=== PATIENT | male | born 1955 | race Asian ===

== ENCOUNTER → 2021-11-18 | Outpatient (CLI) | payer MEDICARE ==
--- NOTE | 2021-11-18 09:23 | RAD ---
CLINICAL HISTORY: Enlarged left testicle. COMPARISON: None available. TECHNIQUE: Ultrasound images of the scrotum was performed with houston-scale and color doppler. FINDINGS: The right testis measures 4.2 x 2.6 x 2.5. The left testis measures 4.0 x 2.7 x 2.5. There is no intratesticular abnormality. Testicular vascularity is symmetric and within normal limit s. There is a 7 x 5 x 6 mm left epididymal body cyst. Large left, moderate right mildly complex hydroceles. No varicocele. IMPRESSION: Large left and moderate right hydrocele. Electronically signed by: Primo Suh MD (11/18/2021 9:20 AM) [id number]
== END ==
LOC: US 07:52
PROVIDERS: ATTEND Family Medicine
DX: N50.3 Cyst of epididymis (principal); N43.3 Hydrocele, unspecified; N50.89 Other specified disorders of the male genital organs
CPT/HCPCS: 76870

== ENCOUNTER → 2021-12-05 | Outpatient (CLI) | payer MEDICARE ==
[2021-12-05 10:44] LABS: BASO % 1 % (0-3); EOS % 2 % (0-3); HEMATOCRIT 21.3 % (39.0-53.0); HEMOGLOBIN 7.1 g/dL (13.0-17.5); LYMPH # 1.7 x10^3/uL (1.0-4.8); LYMPH % 62 % (24-48); MEAN CORPUSCULAR HEMOGLOBIN 31 pg (25-35); MEAN CORPUSCULAR HGB CONC 34 g/dL (31-37); MEAN CORPUSCULAR VOLUME 91 fL (79-100); MONO # 0.3 x10^3/uL (0.0-1.1); MONO % 9 % (0-9); NEUT # 0.7 x10^3/uL (1.8-7.7); NEUT % 26 % (31-73); PLATELET COUNT 134 x10^3/uL (140-400); RED BLOOD COUNT 2.34 x10^6/uL (4.30-5.70); RED CELL DISTRIBUTION WIDTH 17.7 % (11.5-14.5); WHITE BLOOD COUNT 2.8 x10^3/uL (4.0-11.0)
[2021-12-05 10:59] LABS: CALCIUM 8.1 mg/dL (8.5-10.1); GFR 74.3; POTASSIUM 3.8 mmol/L (3.5-5.1)
[2021-12-05 11:11] LABS: ALBUMIN 2.1 g/dL (3.4-5.0); ALBUMIN/GLOBULIN RATIO 0.2 (1.0-1.7); TOTAL BILIRUBIN 0.2 mg/dL (0.2-1.0); TOTAL PROTEIN 13.9 g/dL (6.4-8.2)
[2021-12-05 14:24] LABS: % EOS 1 % (0-5); % LYMPHS 68 % (24-48); % MONOS 6 % (0-10)
[2021-12-05 14:26] LABS: ANISOCYTOSIS SLIGHT; HYPOCHROMIA SLIGHT; PLT ESTIMATE DECREASED (ADEQUATE)
[2021-12-05 14:27] LABS: ROULEAUX PRESENT
[2021-12-06 06:28] LABS: % SEGS 25 % (35-66)
[2021-12-06 14:13] LABS: IMMUNOGLOBULIN A 11 mg/dL (61-437); IMMUNOGLOBULIN G 8284 mg/dL (603-1613); IMMUNOGLOBULIN M 11 mg/dL (20-172)
[2021-12-06 15:43] LABS: ALBUM 3.8 g/dL (2.9-4.4); ALPHA 1 0.3 g/dL (0.0-0.4); ALPHA 2 0.7 g/dL (0.4-1.0); GAMMA 7.1 g/dL (0.4-1.8); KAPPA FREE 5.8 mg/L (3.3-19.4); PROTEIN TOTAL 12.8 g/dL (6.0-8.5); SPEP AG RATIO 0.4 (0.7-1.7)
== END ==
LOC: ONCLAB 09:29
PROVIDERS: ATTEND Internal Medicine Hematology & Oncology
DX: D64.89 Other specified anemias (principal)
CPT/HCPCS: 36415; 80053; 82525; 82668; 82784; 83520; 84165; 85007; 85025; 85045; 86334

== ENCOUNTER 2021-12-26 08:45 | Inpatient (IN) | payer MEDICARE ==
[~2021-12-26] VITALS: Ht 172.7 cm; Wt 62.1 kg
[2021-12-26] VITALS (7 sets, daily range): BP systolic 100–116; BP diastolic 51–58
[2021-12-26] MEDS ORDERED: IV RINGERS,LACTATED 1000ML 1,000 ML IV ONE (09:15)
[2021-12-26 09:41] LABS: BASO % 0 % (0-3); EOS % 0 % (0-3); HEMATOCRIT 20.4 % (39.0-53.0); LYMPH # 0.9 x10^3/uL (1.0-4.8); LYMPH % 20 % (24-48); MEAN CORPUSCULAR HEMOGLOBIN 30 pg (25-35); MEAN CORPUSCULAR HGB CONC 34 g/dL (31-37); MEAN CORPUSCULAR VOLUME 88 fL (79-100); MONO # 0.3 x10^3/uL (0.0-1.1); MONO % 7 % (0-9); NEUT # 3.1 x10^3/uL (1.8-7.7); NEUT % 73 % (31-73); PLATELET COUNT 111 x10^3/uL (140-400); RED BLOOD COUNT 2.31 x10^6/uL (4.30-5.70); RED CELL DISTRIBUTION WIDTH 18.2 % (11.5-14.5); WHITE BLOOD COUNT 4.3 x10^3/uL (4.0-11.0)
[2021-12-26 09:47] LABS: CALCIUM 7.4 mg/dL (8.5-10.1); CREATININE 1.6 mg/dL (0.7-1.3); GFR 43.2; POTASSIUM 3.6 mmol/L (3.5-5.1)
[2021-12-26 10:02] LABS: ALBUMIN/GLOBULIN RATIO 0.2 (1.0-1.7); MAGNESIUM 2.1 mg/dL (1.8-2.4); PHOSPHORUS 4.4 mg/dL (2.6-4.7); TOTAL BILIRUBIN 0.4 mg/dL (0.2-1.0); TOTAL PROTEIN 14.3 g/dL (6.4-8.2)
--- NOTE | 2021-12-26 10:19 | PDOC1 ---
History and Physical Date of Admission Date of Admission DATE: 12/26/21 TIME: 10:18 Identification/Chief Complaint Chief Complaint Weakness Source Source: Caregiver, Chart review, Patient History of Present Illness History of Present Illness Patient is a 66-year-old male with past medical history multiple myeloma, currently being followed by oncology (Dr. Rodriguez), who presents to the ED with complaints of weakness for the past 3 days. Patient states that he had some blood work done over the past 3 months that was suspicious for cancer. He has been seen by Dr. Rodriguez on 2 occasions as an outpatient, with PET scan and bone marrow biopsy pending for this evaluation. Labs in ED showed hemoglobin 7.0, hematocrit 20.4, sodium 129, bicarbonate 20, BUN 22, creatinine 1.6, CBG 107, calcium 7.4, albumin 2.0, proBNP 435. Checks x-ray showed what could be chronic changes or mild acute infiltrates. Will admit patient for further medical management. Past Medical History Past Medical History Multiple myeloma Past Surgical History Past Surgical History Eye surgery Family History Family History: Family History Unknown Social History Smoke: No ALCOHOL: rare Drugs: None Current Medications Current Medications Current Medications Ringer's Solution 1,000 ml @ 1,000 mls/hr 1X ONCE IV Last administered on 12/26/21at 09:25; Start 12/26/21 at 09:15; Stop 12/26/21 at 10:14; Status DC Allergies Allergies: Coded Allergies: No Known Drug Allergies (Unverified , 12/26/21) ROS Review of System GENERAL: Weakness. No history of weight change. SKIN: No bruising, hair changes or rashes. EYES: No blurred, double or loss of vision. NOSE AND THROAT: No history of nosebleeds, hoarseness or sore throat. HEART: Denies chest pain, denies palpitations. LUNGS: Denies cough, hemoptysis, wheezing or shortness of breath. GASTROINTESTINAL: Denies nausea, vomiting, abdominal pain. GENITOURINARY: Denies dysuria, frequency, urgency, hematuria. NEUROLOGIC: Denies history of numbness, tingling, tremor or weakness. PSYCHIATRIC: Denies anxiety, denies depression. ENDOCRINE: No history of heat or cold intolerance, polyuria or polydipsia. EXTREMITIES: Denies joint pain, pain on walking or stiffness. Physical Exam Physical Exam General: Alert, Oriented X3, Cooperative, No acute distress HEENT: PERRLA, EOMI Lungs: Bibasilar crackles. Normal air movement Heart: RRR, no murmurs Cardiovascular: S1, S2 Abdomen: Normal bowel sounds, Soft, No tenderness Extremities: No clubbing, No cyanosis Skin: No rashes, No significant lesion Neuro: Normal speech, Normal tone, Sensation intact Psych/Mental Status: Mental status NL, Mood NL Vitals Vitals Vital Signs Date Time Temp Pulse Resp B/P (MAP) Pulse Ox O2 Delivery O2 Flow Rate FiO2 12/26/21 10:13 80 18 96/56 (69) 98 Room Air 12/26/21 09:00 98.0 98.0 Labs Labs Laboratory Tests Test 12/26/21 09:20 White Blood Count 4.3 x10^3/uL (4.0-11.0) Red Blood Count 2.31 x10^6/uL (4.30-5.70) Hemoglobin 7.0 g/dL (13.0-17.5) Hematocrit 20.4 % (39.0-53.0) Mean Corpuscular Volume 88 fL (79-100) Mean Corpuscular Hemoglobin 30 pg (25-35) Mean Corpuscular Hemoglobin Concent 34 g/dL (31-37) Red Cell Distribution Width 18.2 % (11.5-14.5) Platelet Count 111 x10^3/uL (140-400) Neutrophils (%) (Auto) 73 % (31-73) Lymphocytes (%) (Auto) 20 % (24-48) Monocytes (%) (Auto) 7 % (0-9) Eosinophils (%) (Auto) 0 % (0-3) Basophils (%) (Auto) 0 % (0-3) Neutrophils # (Auto) 3.1 x10^3/uL (1.8-7.7) Lymphocytes # (Auto) 0.9 x10^3/uL (1.0-4.8) Monocytes # (Auto) 0.3 x10^3/uL (0.0-1.1) Eosinophils # (Auto) 0.0 x10^3/uL (0.0-0.7) Basophils # (Auto) 0.0 x10^3/uL (0.0-0.2) Sodium Level 129 mmol/L (136-145) Potassium Level 3.6 mmol/L (3.5-5.1) Chloride Level 98 mmol/L (98-107) Carbon Dioxide Level 20 mmol/L (21-32) Anion Gap 11 (6-14) Blood Urea Nitrogen 22 mg/dL (8-26) Creatinine 1.6 mg/dL (0.7-1.3) Estimated GFR (Cockcroft-Gault) 43.2 BUN/Creatinine Ratio 14 (6-20) Glucose Level 107 mg/dL (70-99) Calcium Level 7.4 mg/dL (8.5-10.1) Phosphorus Level 4.4 mg/dL (2.6-4.7) Magnesium Level 2.1 mg/dL (1.8-2.4) Total Bilirubin 0.4 mg/dL (0.2-1.0) Aspartate Amino Transf (AST/SGOT) 29 U/L (15-37) Alanine Aminotransferase (ALT/SGPT) 27 U/L (16-63) Alkaline Phosphatase 49 U/L (46-116) Troponin I High Sensitivity 37 ng/L (4-75) BE-Zgb-I-Type Natriuretic Peptide 435 pg/mL (0-124) Total Protein 14.3 g/dL (6.4-8.2) Albumin 2.0 g/dL (3.4-5.0) Albumin/Globulin Ratio 0.2 (1.0-1.7) Laboratory Tests Test 12/26/21 09:20 White Blood Count 4.3 x10^3/uL (4.0-11.0) Red Blood Count 2.31 x10^6/uL (4.30-5.70) Hemoglobin 7.0 g/dL (13.0-17.5) Hematocrit 20.4 % (39.0-53.0) Mean Corpuscular Volume 88 fL (79-100) Mean Corpuscular Hemoglobin 30 pg (25-35) Mean Corpuscular Hemoglobin Concent 34 g/dL (31-37) Red Cell Distribution Width 18.2 % (11.5-14.5) Platelet Count 111 x10^3/uL (140-400) Neutrophils (%) (Auto) 73 % (31-73) Lymphocytes (%) (Auto) 20 % (24-48) Monocytes (%) (Auto) 7 % (0-9) Eosinophils (%) (Auto) 0 % (0-3) Basophils (%) (Auto) 0 % (0-3) Neutrophils # (Auto) 3.1 x10^3/uL (1.8-7.7) Lymphocytes # (Auto) 0.9 x10^3/uL (1.0-4.8) Monocytes # (Auto) 0.3 x10^3/uL (0.0-1.1) Eosinophils # (Auto) 0.0 x10^3/uL (0.0-0.7) Basophils # (Auto) 0.0 x10^3/uL (0.0-0.2) Sodium Level 129 mmol/L (136-145) Potassium Level 3.6 mmol/L (3.5-5.1) Chloride Level 98 mmol/L (98-107) Carbon Dioxide Level 20 mmol/L (21-32) Anion Gap 11 (6-14) Blood Urea Nitrogen 22 mg/dL (8-26) Creatinine 1.6 mg/dL (0.7-1.3) Estimated GFR (Cockcroft-Gault) 43.2 BUN/Creatinine Ratio 14 (6-20) Glucose Level 107 mg/dL (70-99) Calcium Level 7.4 mg/dL (8.5-10.1) Phosphorus Level 4.4 mg/dL (2.6-4.7) Magnesium Level 2.1 mg/dL (1.8-2.4) Total Bilirubin 0.4 mg/dL (0.2-1.0) Aspartate Amino Transf (AST/SGOT) 29 U/L (15-37) Alanine Aminotransferase (ALT/SGPT) 27 U/L (16-63) Alkaline Phosphatase 49 U/L (46-116) Troponin I High Sensitivity 37 ng/L (4-75) VC-Lac-Y-Type Natriuretic Peptide 435 pg/mL (0-124) Total Protein 14.3 g/dL (6.4-8.2) Albumin 2.0 g/dL (3.4-5.0) Albumin/Globulin Ratio 0.2 (1.0-1.7) Images Images PATIENT: SHELBY PRECIADO ACCOUNT: [id number] : 1955 LOCATION: ER AGE: 66 SEX: M EXAM STATUS: REG ER ORD. PHYSICIAN: SERGIO HENRIQUEZ REASON: cough, leukopenia PROCEDURE: PORTABLE CHEST 1V AP chest. HISTORY: Cough AP view was taken of the chest. I do not have previous study for comparison. Heart is within normal limits in size. There is no effusion. There are slight interstitial infiltrates which could be acute or chronic. PA and lateral views could be of benefit. Comparison with a prior study could be of benefit. IMPRESSION: 1. slight hazy interstitial changes which could be chronic changes or mild acute infiltrates. VTE Prophylaxis Ordered VTE Prophylaxis Devices: No VTE Pharmacological Prophylaxi: Yes Assessment/Plan Assessment/Plan Weakness Community-acquired pneumonia due to gram-negative or gram-positive organism Hyponatremia Normocytic anemia Multiple myeloma MONI due to vasomotor nephropathy Hypocalcemia Severe malnutrition Plan: Will order 1 unit PRBC Will obtain blood cultures and then treat with IV Rocephin and azithromycin Fluid restriction for hyponatremia. If no improvement with fluid restriction will order hypertonic saline. Will monitor kidney function for improvement with IV fluids IV calcium gluconate 1 g Consult placed to oncology for bone marrow biopsy FEN - regular diet PPX - Heparin FULL CODE/surrogate decision-maker is his daughter (Racquel Arthur) Dispo - inpatient for above Justifications for Admission Other Justification MARGARETH GRAVES MD December 26, 2021 10:19
[2021-12-26 10:24] LABS: INFLUENZA A PATIENT NEGATIVE (NEGATIVE); INFLUENZA B PATIENT NEGATIVE (NEGATIVE)
--- NOTE | 2021-12-26 10:25 | RAD ---
AP chest. HISTORY: Cough AP view was taken of the chest. I do not have previous study for comparison. Heart is within normal l imits in size. There is no effusion. There are slight interstitial infiltrates which could be acute o r chronic. PA and lateral views could be of benefit. Comparison with a prior study could be of benefi t. IMPRESSION: 1. slight hazy interstitial changes which could be chronic changes or mild acute infiltrates. Electronically signed by: Guanako Maddox MD (12/26/2021 10:22 AM) [id number]
--- NOTE | 2021-12-26 10:33 | PHYS DOC ---
Past Medical History Additional Past Medical Histor: pancytopenia Past Surgical History: No Surgical History Smoking Status: Never Smoker Alcohol Use: None General Adult EDM: Chief Complaint: WEAKNESS/GENERALIZED HPI: HPI: Patient is a 66 year old male who presents from home with 3-day history of weakness and new onset cough. Patient's daughter is at bedside and aids in providing history. Patient is currently undergoing outpatient work-up by Dr. Rodriguez, hematology/oncology, regarding incidental finding of pancytopenia earlier this year. Patient is scheduled for a PET scan on Sunday as well as bone marrow biopsy. With patient's worsening weakness and new onset cough, patient is hoping to have work-up expedited in the hospital. Patient has no other complaints or concerns. Review of Systems: Review of Systems: Constitutional: Denies fever, chills; reports generalized weakness Eyes: Denies change in visual acuity, visual field deficits or discharge HENT: Denies ear pain, nasal congestion or sore throat Respiratory: Denies shortness of breath; reports dry cough Cardiovascular: Denies chest pain, palpitations or edema GI: Denies abdominal pain, nausea, vomiting, bloody stools or diarrhea : Denies dysuria or hematuria Musculoskeletal: Denies back pain or joint pain Integument: Denies rash or other skin lesion Neurologic: Denies headache, focal weakness or sensory changes Heart Score: C/O Chest Pain: No Current Medications: Current Medications Medications (Trade) Dose Ordered Sig/Carl Start Time Stop Time Status Last Admin Dose Admin Ringer's Solution 1,000 ml @ 1,000 mls/hr 1X ONCE 12/26/21 09:15 12/26/21 10:14 DC 12/26/21 09:25 1,000 MLS/HR Allergies: Allergies: Allergies Coded Allergies Type Severity Reaction Last Updated Verified No Known Drug Allergies 12/26/21 No Physical Exam: PE: Constitutional: Cachectic, no acute distress. HENT: Normocephalic, atraumatic, bilateral external ears normal, oropharynx tacky, no oral exudates. Eyes: EOMI, conjunctiva normal, no discharge. Neck: Normal range of motion, no stridor. Cardiovascular: Regular rate, regular rhythm. Lungs & Thorax: Equal thoracic expansion, no increased work of breathing, breath sounds diminished but clear to auscultation in all lung mccoy. Abdomen: Soft, no tenderness, no masses, no pulsatile masses. Skin: Warm, dry, no erythema, no rash. Extremities: No cyanosis, no clubbing, ROM intact, no edema. Neurologic: Alert and oriented x4, motor and sensory function grossly intact, no focal deficits noted. Current Patient Data: Labs: Laboratory Tests Test 12/26/21 09:20 White Blood Count 4.3 x10^3/uL (4.0-11.0) Red Blood Count 2.31 x10^6/uL (4.30-5.70) L Hemoglobin 7.0 g/dL (13.0-17.5) *L Hematocrit 20.4 % (39.0-53.0) L Mean Corpuscular Volume 88 fL (79-100) Mean Corpuscular Hemoglobin 30 pg (25-35) Mean Corpuscular Hemoglobin Concent 34 g/dL (31-37) Red Cell Distribution Width 18.2 % (11.5-14.5) H Platelet Count 111 x10^3/uL (140-400) L Neutrophils (%) (Auto) 73 % (31-73) Lymphocytes (%) (Auto) 20 % (24-48) L Monocytes (%) (Auto) 7 % (0-9) Eosinophils (%) (Auto) 0 % (0-3) Basophils (%) (Auto) 0 % (0-3) Neutrophils # (Auto) 3.1 x10^3/uL (1.8-7.7) Lymphocytes # (Auto) 0.9 x10^3/uL (1.0-4.8) L Monocytes # (Auto) 0.3 x10^3/uL (0.0-1.1) Eosinophils # (Auto) 0.0 x10^3/uL (0.0-0.7) Basophils # (Auto) 0.0 x10^3/uL (0.0-0.2) Sodium Level 129 mmol/L (136-145) L Potassium Level 3.6 mmol/L (3.5-5.1) Chloride Level 98 mmol/L (98-107) Carbon Dioxide Level 20 mmol/L (21-32) L Anion Gap 11 (6-14) Blood Urea Nitrogen 22 mg/dL (8-26) Creatinine 1.6 mg/dL (0.7-1.3) H Estimated GFR (Cockcroft-Gault) 43.2 BUN/Creatinine Ratio 14 (6-20) Glucose Level 107 mg/dL (70-99) H Calcium Level 7.4 mg/dL (8.5-10.1) L Phosphorus Level 4.4 mg/dL (2.6-4.7) Magnesium Level 2.1 mg/dL (1.8-2.4) Total Bilirubin 0.4 mg/dL (0.2-1.0) Aspartate Amino Transferase (AST) 29 U/L (15-37) Alanine Aminotransferase (ALT) 27 U/L (16-63) Alkaline Phosphatase 49 U/L (46-116) Troponin I High Sensitivity 37 ng/L (4-75) NE-Onk-C-Type Natriuretic Peptide 435 pg/mL (0-124) H Total Protein 14.3 g/dL (6.4-8.2) H Albumin 2.0 g/dL (3.4-5.0) L Albumin/Globulin Ratio 0.2 (1.0-1.7) L Laboratory Tests 12/26/21 09:20 Laboratory Tests 12/26/21 09:20 Vital Signs: Vital Signs Date Time Temp Pulse Resp B/P (MAP) Pulse Ox O2 Delivery O2 Flow Rate FiO2 12/26/21 10:13 80 18 96/56 (69) 98 Room Air 12/26/21 09:00 98.0 81 20 117/57 (77) 97 98.0 EKG: EKG: EKG Interpreted by Dr. Villarreal at 0937: Regular rate and rhythm 81 bpm with no ectopic beats. QT 360 ms/QTc 424 ms. No STEMI. Radiology/Procedures: Radiology/Procedures: PROCEDURE: PORTABLE CHEST 1V AP chest. HISTORY: Cough AP view was taken of the chest. I do not have previous study for comparison. Heart is within normal limits in size. There is no effusion. There are slight interstitial infiltrates which could be acute or chronic. PA and lateral views could be of benefit. Comparison with a prior study could be of benefit. IMPRESSION: 1. slight hazy interstitial changes which could be chronic changes or mild acute infiltrates. Electronically signed by: Guanako Maddox MD (12/26/2021 10:22 AM) [id number] Course & Med Decision Making: Course & Med Decision Making Pertinent Labs and Imaging studies reviewed. (See chart for details) Patient is a 66-year-old male currently undergoing investigation for probable multiple myeloma who presents with 3-day history of weakness and cough. Patient denies any sick contacts. Work-up today reveals pancytopenia, consistent with prior work-up. Additionally, his sodium is at 129. Patient will be admitted for electrolyte correction. I also spoke to Dr. Rodriguez, who is the patient's current icing coater/oncologist, will be involved in his care during admission. Dr. Rodriguez will expedite bone marrow biopsy to confirm diagnosis of multiple myeloma. Patient's PET scan will remain as scheduled. Patient and his daughter were made aware of findings and discussed admission plan. They understand and are agreeable to admission. Dr. Cristóbal Poon, hospitalist, gladly accepts patient for further evaluation and treatment. Rima Disclaimer: Rima Disclaimer: This electronic medical record was generated, in whole or in part, using a voice recognition dictation system. Departure Departure Impression: Primary Impression: Hyponatremia Additional Impressions: Weakness generalized Pancytopenia Disposition: ADMITTED INPATIENT Admitting Physician: SHAUNA (Ayah) Condition: GUARDED Referrals: SUMEET MACDONALD MD (PCP) SERGIO HENRIQUEZ December 26, 2021 10:33
[2021-12-26] MEDS ORDERED: CALCIUM GLUCONATE 1,000 MG/10 ML VIAL. IVP ONE (14:30)
--- NOTE | 2021-12-26 15:11 | EKG ---
[facility] [address] [place] [address] Test Date: 2021-12-26 Test Time: 09:33:32 Pat Name: SHELBY PRECIADO Department: Room: 516 Gender: M Sales Project Manager: : 1955 Requested By: SERGIO HENRIQUEZ Order Number: [id number] Reading MD: Frandy Zarate MD Measurements Intervals Carmen Rate: 81 P: 56 TN: 152 QRS: 47 QRSD: 86 T: 59 QT: 360 QTc: 424 Interpretive Statements SINUS RHYTHM Electronically Signed On 12-27-2021 11:08:12 CDT by Frandy Zarate MD
[2021-12-26] MEDS: cefTRIAXone IV Push 1 GM VIAL. IVP SCH (17:10)
[2021-12-26] MEDS: AZITHROMYCIN 500 MG in IV DEXTROSE 5% 250 ML IV SCH (17:19)
[2021-12-26] MEDS ORDERED: guaiFENesin ORAL 200 MG/10 ML LIQUID. PO PRN (20:45)
[2021-12-26] MEDS ORDERED: PHENOL ORAL SPRAY 177ML BOTTLE. PO PRN (22:45)
[2021-12-26] MEDS ORDERED: ACETAMINOPHEN 325 MG TABLET. PO PRN (22:45)
[2021-12-26] MEDS ORDERED: ACETAMINOPHEN 325 MG TABLET. PO ONE (23:00)
[2021-12-26] MEDS: BENZONATATE 100 MG CAPSULE. PO PRN (23:05)
[2021-12-27] VITALS (18 sets, daily range): BP systolic 95–140; BP diastolic 47–70
[2021-12-27 06:53] LABS: CALCIUM 8.2 mg/dL (8.5-10.1); CREATININE 1.1 mg/dL (0.7-1.3); GFR 66.6; POTASSIUM 3.6 mmol/L (3.5-5.1)
[2021-12-27 06:55] LABS: BASO % 0 % (0-3); EOS % 0 % (0-3); HEMATOCRIT 25.3 % (39.0-53.0); HEMOGLOBIN 8.6 g/dL (13.0-17.5); LYMPH # 0.9 x10^3/uL (1.0-4.8); LYMPH % 27 % (24-48); MEAN CORPUSCULAR HEMOGLOBIN 30 pg (25-35); MEAN CORPUSCULAR HGB CONC 34 g/dL (31-37); MEAN CORPUSCULAR VOLUME 88 fL (79-100); MONO # 0.1 x10^3/uL (0.0-1.1); MONO % 3 % (0-9); NEUT # 2.3 x10^3/uL (1.8-7.7); NEUT % 69 % (31-73); PLATELET COUNT 100 x10^3/uL (140-400); RED BLOOD COUNT 2.89 x10^6/uL (4.30-5.70); RED CELL DISTRIBUTION WIDTH 18.5 % (11.5-14.5); WHITE BLOOD COUNT 3.3 x10^3/uL (4.0-11.0)
--- NOTE | 2021-12-27 10:19 | PDOC ---
[employer] PROGRESS NOTE Date of Service DOS: DATE: 12/27/21 TIME: 10:15 Chief Complaint Chief Complaint Weakness Community-acquired pneumonia due to gram-negative or gram-positive organism Hyponatremia Normocytic anemia Multiple myeloma MONI due to vasomotor nephropathy Hypocalcemia Severe malnutrition History of Present Illness History of Present Illness 12/27: Patient seen and evaluated with family at bedside. Afebrile, states he feels much better today. Hemoglobin 8.6, sodium 134. He is n.p.o. for bone marrow biopsy today. Continue treatment for community-acquired pneumonia with Rocephin and azithromycin. PT/OT evaluation pending. Vitals/I&O Vitals/I&O: Vital Signs Date Time Temp Pulse Resp B/P (MAP) Pulse Ox O2 Delivery O2 Flow Rate FiO2 12/27/21 07:00 98.1 67 18 105/61 (76) 95 Nasal Cannula 1.0 98.1 I & O 12/26/21 12/26/21 12/27/21 15:00 23:00 07:00 Intake Total 300 ml Output Total 0 ml Balance 300 ml 0 ml Physical Exam General: Alert, Oriented X3, Cooperative Heart: Regular rate Lungs: Crackles Abdomen: Soft Extremities: No clubbing, No cyanosis Skin: No rashes, No breakdown Labs Labs: Laboratory Tests Test 12/26/21 10:35 12/27/21 05:35 Coronavirus (COVID-19)(PCR) Not detected (NOT DETECTD) White Blood Count 3.3 x10^3/uL (4.0-11.0) Red Blood Count 2.89 x10^6/uL (4.30-5.70) Hemoglobin 8.6 g/dL (13.0-17.5) Hematocrit 25.3 % (39.0-53.0) Mean Corpuscular Volume 88 fL (79-100) Mean Corpuscular Hemoglobin 30 pg (25-35) Mean Corpuscular Hemoglobin Concent 34 g/dL (31-37) Red Cell Distribution Width 18.5 % (11.5-14.5) Platelet Count 100 x10^3/uL (140-400) Neutrophils (%) (Auto) 69 % (31-73) Lymphocytes (%) (Auto) 27 % (24-48) Monocytes (%) (Auto) 3 % (0-9) Eosinophils (%) (Auto) 0 % (0-3) Basophils (%) (Auto) 0 % (0-3) Neutrophils # (Auto) 2.3 x10^3/uL (1.8-7.7) Lymphocytes # (Auto) 0.9 x10^3/uL (1.0-4.8) Monocytes # (Auto) 0.1 x10^3/uL (0.0-1.1) Eosinophils # (Auto) 0.0 x10^3/uL (0.0-0.7) Basophils # (Auto) 0.0 x10^3/uL (0.0-0.2) Sodium Level 134 mmol/L (136-145) Potassium Level 3.6 mmol/L (3.5-5.1) Chloride Level 104 mmol/L (98-107) Carbon Dioxide Level 22 mmol/L (21-32) Anion Gap 8 (6-14) Blood Urea Nitrogen 19 mg/dL (8-26) Creatinine 1.1 mg/dL (0.7-1.3) Estimated GFR (Cockcroft-Gault) 66.6 Glucose Level 103 mg/dL (70-99) Calcium Level 8.2 mg/dL (8.5-10.1) Assessment and Plan Assessmemt and Plan Problems Medical Problems: (1) Hyponatremia Status: Acute (2) Pancytopenia Status: Acute (3) Weakness generalized Status: Acute Comment Review of Relevant I have reviewed the following items maciel (where applicable) has been applied. Medications: Current Medications Medications (Trade) Dose Ordered Sig/Carl Route PRN Reason Start Time Stop Time Status Last Admin Dose Admin Calcium Gluconate (Calcium Gluconate) 1,000 mg 1X ONCE IVP 12/26/21 14:30 12/26/21 14:31 DC 12/26/21 17:18 Ceftriaxone Sodium (Rocephin) 1 gm Q24H IVP 12/26/21 15:00 12/31/21 14:59 12/26/21 17:10 Azithromycin 500 mg/Dextrose 250 ml @ 250 mls/hr Q24H IV 12/26/21 15:00 12/31/21 14:59 12/26/21 17:19 Phenol (Chloraseptic) 1 spray PRN Q2HR PRN PO SORE THROAT 12/26/21 22:45 12/26/21 22:58 Benzonatate (Tessalon Perle) 100 mg PRN Q8HRS PRN PO cough 12/26/21 22:45 12/26/21 23:05 Acetaminophen (Tylenol) 650 mg 1X ONCE PO 12/26/21 23:00 12/26/21 23:01 DC 12/26/21 22:58 Justifications for Admission Other Justification MARGARETH GRAVES MD December 27, 2021 10:19
[2021-12-27] MEDS ORDERED: fentaNYL PF VIAL 100 MCG/2 ML VIAL IV ONE (11:15)
[2021-12-27] MEDS ORDERED: MIDAZOLAM HCL/PF 2 MG/2 ML VIAL. IV ONE (11:15)
[2021-12-27] MEDS ORDERED: LIDOCAINE WITH 8.4% SOD BICARB 3 ML DISP.SYRIN. IJ ONE (11:15)
--- NOTE | 2021-12-27 11:43 | RAD ---
Procedure: CT guided iliac crest bone marrow aspirate and biopsy with conscious sedation . Clinical Indication: Possible myeloma Discussion: The risks and benefits of the procedure including but not limited to infection, bleeding, and pain, were discussed the patient. Informed consent was obtained. Patient was brought to the CT s canner and placed in the prone position. A time out procedure was performed. The left gluteal region was prepped and draped using maximum sterile barrier technique. CT imaging of the pelvis was perform ed demonstrating a left ilium amenable to bone marrow biopsy. Once an appropriate site for skin entry was selected 1% lidocaine without epinephrine was administered for local anesthesia Following this an [employer] Instructor an 11 gauge biopsy needle was set into the superficial cortex of the iliac crest. Aspirates and cores were obtained. Pressure was held to achieve hemostasis. Sterile dressing was applied. The patient tolerated the procedure well without immediate complication. Sedation: Conscious sedation was performed for 13 minutes. Sedation was carried while the patient wa s continually monitored by a member of the Radiology nursing staff. Continual cardiopulmonary monito ring was carried out during the procedure. Conclusion: Successful CT guided bone marrow biopsy and aspirate of left iliac crest CT DOSING PQRS STATEMENT: One or more of the following individualized dose reduction techniques were utilized for this examinat ion: 1. Automated exposure control 2. Adjustment of the mA and/or kV according to patient size 3. Use of iterative reconstruction technique Electronically signed by: Kenn Sykes MD (12/27/2021 11:40 AM) [id number]
--- NOTE | 2021-12-27 15:46 | NUR ---
SS following for discharge planning. SS reviewed pt chart and discussed with pt RN. Pt is from home and is currently requiring oxygen at two liters nasal canula. COVID19 negative[address] Rodriguez consulted. Bone Biopsy today. Pt on IV Rocephin and IV Azithromycin. SS will continue to follow for discharge planning.
[2021-12-27] MEDS: cefTRIAXone IV Push 1 GM VIAL. IVP SCH (17:59)
[2021-12-27] MEDS: AZITHROMYCIN 500 MG in IV DEXTROSE 5% 250 ML IV SCH (18:00)
[2021-12-27 18:20] LABS: BACTERIA,URINE 0 /HPF (0-FEW); WBC,URINE 0 /HPF (0-4)
[2021-12-27] MEDS: BENZONATATE 100 MG CAPSULE. PO PRN (22:21)
[2021-12-28 03:24] VITALS: BP 92/48
[2021-12-28 07:00] VITALS: BP 92/51
[2021-12-28 08:03] LABS: CALCIUM 7.8 mg/dL (8.5-10.1); CREATININE 1.1 mg/dL (0.7-1.3); GFR 66.6; POTASSIUM 3.5 mmol/L (3.5-5.1)
[2021-12-28] MEDS: BENZONATATE 100 MG CAPSULE. PO PRN (08:23)
[2021-12-28] MEDS ORDERED: AZITHROMYCIN 250 MG TABLET. PO SCH (09:00)
[2021-12-28 11:00] VITALS: BP 92/51
--- NOTE | 2021-12-28 12:03 | PDOC ---
[employer] PROGRESS NOTE Date of Service DOS: DATE: 12/28/21 TIME: 12:01 Chief Complaint Chief Complaint Weakness Community-acquired pneumonia due to gram-negative or gram-positive organism Hyponatremia Normocytic anemia Multiple myeloma MONI due to vasomotor nephropathy Hypocalcemia Severe malnutrition History of Present Illness History of Present Illness 12/28: Patient evaluated with daughter at bedside. States he feels much better today, his weakness has improved after 1 unit PRBC. His sodium is improved as well, 135 today. He had bone marrow biopsy performed yesterday, and is followed by Dr. Rodriguez for possible multiple myeloma. Patient is wanting to discharge today with family care, lives with his 2 adult daughters at home. Will discharge on oral antibiotics and cough medication. Greater than 30 minutes spent managing the discharge of this patient. 12/27: Patient seen and evaluated with family at bedside. Afebrile, states he feels much better today. Hemoglobin 8.6, sodium 134. He is n.p.o. for bone marrow biopsy today. Continue treatment for community-acquired pneumonia with Rocephin and azithromycin. PT/OT evaluation pending. Vitals/I&O Vitals/I&O: Vital Signs Date Time Temp Pulse Resp B/P (MAP) Pulse Ox O2 Delivery O2 Flow Rate FiO2 12/28/21 11:00 97.7 67 18 92/51 (65) 97 Nasal Cannula 1.0 97.7 I & O 12/27/21 12/27/21 12/28/21 15:00 23:00 07:00 Intake Total 60 ml 60 ml Balance 60 ml 60 ml Physical Exam General: Alert, Oriented X3, Cooperative Heart: Regular rate Lungs: Crackles Abdomen: Soft Extremities: No clubbing, No cyanosis Skin: No rashes, No breakdown Labs Labs: Laboratory Tests Test 12/27/21 17:50 12/28/21 06:50 Urine Collection Type Unknown Urine Color (Auto) Light yellow Urine Turbidity Clear Urine pH (Auto) 6.5 (<5.0-8.0) Urine Specific [place] 1.024 (1.000-1.030) Urine Protein (Auto) 50 mg/dL (Negative) Urine Glucose (Auto)(UA) Negative mg/dL (Negative) Urine Ketones (Auto) Negative mg/dL (Negative) Urine Blood (Auto) Moderate (Negative) Urine Nitrite Negative (Negative) Urine Bilirubin (Auto) Negative (Negative) Urine Urobilinogen (Auto) Normal mg/dL (Normal) Urine Leukocyte Esterase (Auto) Negative (Negative) Urine RBC 3-5 /HPF (0-2) Urine WBC 0 /HPF (0-4) Urine Bacteria 0 /HPF (0-FEW) Urine Mucus Slight /LPF Sodium Level 135 mmol/L (136-145) Potassium Level 3.5 mmol/L (3.5-5.1) Chloride Level 105 mmol/L (98-107) Carbon Dioxide Level 22 mmol/L (21-32) Anion Gap 8 (6-14) Blood Urea Nitrogen 20 mg/dL (8-26) Creatinine 1.1 mg/dL (0.7-1.3) Estimated GFR (Cockcroft-Gault) 66.6 Glucose Level 100 mg/dL (70-99) Calcium Level 7.8 mg/dL (8.5-10.1) Assessment and Plan Assessmemt and Plan Problems Medical Problems: (1) Hyponatremia Status: Acute (2) Pancytopenia Status: Acute (3) Weakness generalized Status: Acute Comment Review of Relevant I have reviewed the following items maciel (where applicable) has been applied. Medications: Current Medications Medications (Trade) Dose Ordered Sig/Carl Route PRN Reason Start Time Stop Time Status Last Admin Dose Admin Azithromycin (Zithromax) 500 mg DAILY PO 12/28/21 09:00 12/28/21 08:24 Justifications for Admission Other Justification MARGARETH GRAVES MD December 28, 2021 12:03
--- NOTE | 2021-12-28 12:04 | NUR ---
SS following up with discharge planning. SS reviewed pt chart and discussed with pt RN. Pt is currently requiring oxygen at one liter nasal canula. Pt on IV Rocephin. Possible discharge to home with home healthcare when medically ready. SS will continue to follow for discharge planning.
--- NOTE | 2021-12-28 12:12 | PDOC3 ---
Discharge Summary Visit Information Date of Admission: December 27, 2021 Date of Discharge: December 28, 2021 Final Diagnosis Problems Medical Problems: (1) Hyponatremia Status: Acute (2) Pancytopenia Status: Acute (3) Weakness generalized Status: Acute Brief Hospital Course Allergies Allergies Coded Allergies Type Severity Reaction Last Updated Verified No Known Drug Allergies 12/26/21 No Vital Signs Vital Signs Date Time Temp Pulse Resp B/P (MAP) Pulse Ox O2 Delivery O2 Flow Rate FiO2 12/28/21 11:00 97.7 67 18 92/51 (65) 97 Nasal Cannula 1.0 97.7 Lab Results Laboratory Tests Test 12/27/21 05:35 12/27/21 17:50 12/28/21 06:50 White Blood Count 3.3 x10^3/uL (4.0-11.0) Red Blood Count 2.89 x10^6/uL (4.30-5.70) Hemoglobin 8.6 g/dL (13.0-17.5) Hematocrit 25.3 % (39.0-53.0) Mean Corpuscular Volume 88 fL (79-100) Mean Corpuscular Hemoglobin 30 pg (25-35) Mean Corpuscular Hemoglobin Concent 34 g/dL (31-37) Red Cell Distribution Width 18.5 % (11.5-14.5) Platelet Count 100 x10^3/uL (140-400) Neutrophils (%) (Auto) 69 % (31-73) Lymphocytes (%) (Auto) 27 % (24-48) Monocytes (%) (Auto) 3 % (0-9) Eosinophils (%) (Auto) 0 % (0-3) Basophils (%) (Auto) 0 % (0-3) Neutrophils # (Auto) 2.3 x10^3/uL (1.8-7.7) Lymphocytes # (Auto) 0.9 x10^3/uL (1.0-4.8) Monocytes # (Auto) 0.1 x10^3/uL (0.0-1.1) Eosinophils # (Auto) 0.0 x10^3/uL (0.0-0.7) Basophils # (Auto) 0.0 x10^3/uL (0.0-0.2) Sodium Level 134 mmol/L (136-145) 135 mmol/L (136-145) Potassium Level 3.6 mmol/L (3.5-5.1) 3.5 mmol/L (3.5-5.1) Chloride Level 104 mmol/L (98-107) 105 mmol/L (98-107) Carbon Dioxide Level 22 mmol/L (21-32) 22 mmol/L (21-32) Anion Gap 8 (6-14) 8 (6-14) Blood Urea Nitrogen 19 mg/dL (8-26) 20 mg/dL (8-26) Creatinine 1.1 mg/dL (0.7-1.3) 1.1 mg/dL (0.7-1.3) Estimated GFR (Cockcroft-Gault) 66.6 66.6 Glucose Level 103 mg/dL (70-99) 100 mg/dL (70-99) Calcium Level 8.2 mg/dL (8.5-10.1) 7.8 mg/dL (8.5-10.1) Urine Collection Type Unknown Urine Color (Auto) Light yellow Urine Turbidity Clear Urine pH (Auto) 6.5 (<5.0-8.0) Urine Specific [place] 1.024 (1.000-1.030) Urine Protein (Auto) 50 mg/dL (Negative) Urine Glucose (Auto)(UA) Negative mg/dL (Negative) Urine Ketones (Auto) Negative mg/dL (Negative) Urine Blood (Auto) Moderate (Negative) Urine Nitrite Negative (Negative) Urine Bilirubin (Auto) Negative (Negative) Urine Urobilinogen (Auto) Normal mg/dL (Normal) Urine Leukocyte Esterase (Auto) Negative (Negative) Urine RBC 3-5 /HPF (0-2) Urine WBC 0 /HPF (0-4) Urine Bacteria 0 /HPF (0-FEW) Urine Mucus Slight /LPF Laboratory Tests Test 12/27/21 17:50 12/28/21 06:50 Urine Collection Type Unknown Urine Color (Auto) Light yellow Urine Turbidity Clear Urine pH (Auto) 6.5 (<5.0-8.0) Urine Specific [place] 1.024 (1.000-1.030) Urine Protein (Auto) 50 mg/dL (Negative) Urine Glucose (Auto)(UA) Negative mg/dL (Negative) Urine Ketones (Auto) Negative mg/dL (Negative) Urine Blood (Auto) Moderate (Negative) Urine Nitrite Negative (Negative) Urine Bilirubin (Auto) Negative (Negative) Urine Urobilinogen (Auto) Normal mg/dL (Normal) Urine Leukocyte Esterase (Auto) Negative (Negative) Urine RBC 3-5 /HPF (0-2) Urine WBC 0 /HPF (0-4) Urine Bacteria 0 /HPF (0-FEW) Urine Mucus Slight /LPF Sodium Level 135 mmol/L (136-145) Potassium Level 3.5 mmol/L (3.5-5.1) Chloride Level 105 mmol/L (98-107) Carbon Dioxide Level 22 mmol/L (21-32) Anion Gap 8 (6-14) Blood Urea Nitrogen 20 mg/dL (8-26) Creatinine 1.1 mg/dL (0.7-1.3) Estimated GFR (Cockcroft-Gault) 66.6 Glucose Level 100 mg/dL (70-99) Calcium Level 7.8 mg/dL (8.5-10.1) Brief Hospital Course Mr. Liu is a 66 old male who presented at the behest of his oncologist with weakness and anemia. He is currently being worked up for multiple myeloma by his oncologist, Dr. Rodriguez. Labs upon admission showed hemoglobin 7.0. He was transfused 1 unit PRBC with improvement to hemoglobin 8.6. He was also noted to have infiltrates on his chest x-ray. He was treated with IV Rocephin and IV azithromycin. He was also treated with fluid restriction for mild hyponatremia. Per his oncologist request, he had successful CT guided bone marrow biopsy and aspirate of left iliac crest. He was slated to work with PT/OT but refused, opting to discharge home with family care. Will discharge patient on cefdinir and azithromycin to complete his treatment for community- acquired pneumonia. Discharge Information Condition at Discharge: Improved Disposition/Orders: D/C to Home Justicifation of Admission Dx: Justifications for Admission: Justification of Admission Dx: Yes MARGARETH GRAVES MD December 28, 2021 12:12
[2021-12-28] MEDS ORDERED: BENZ1LOZ61 PO (12:19)
[2021-12-28] MEDS ORDERED: AZIT250T6 PO (12:19)
[2021-12-28] MEDS ORDERED: BENZ-8 PO (12:19)
[2021-12-28] MEDS ORDERED: CEFD300C PO (12:19)
--- NOTE | 2021-12-28 12:51 | NUR ---
Pt discharging with daughters. He is ambulating to car. All belongings sent with him and family. Time 1300
--- NOTE | 2022-01-04 10:11 | PATHOLOGY ---
[facility] Accession Number: [id number] . 01 Material submitted: . PART A: body - BM BIOPSY PART B: body - BM CLOT PARTICLE PREP PART C: body - BM ASPIRATE SLIDES PART D: body - BM PERIPHERAL SMEARS PART E: body - BM SENDOUT . 01 Clinical history: . HYPONATREMIA, MULTIPLE MYELOMA, PANCYTOPENIA, WEAKNESS . 02 Diagnosis: A. Peripheral smear: - Leukopenia, mild. - Normocytic normochromic anemia, moderate, with red cell rouleaux. - Thrombocytopenia, mild. . B. Bone marrow, aspirate smear, touch imprints, clot section, and core biopsy: - Variable normocellular to focally hypercellular marrow, showing extensive replacement by mildly atypical plasma cells showing lambda light chain restriction, consistent with marrow involvement by plasma cell myeloma. See comment. - Focal presence of reticuloendothelial iron stores. . (WILBERM:delaney; 01/03/2022) R 01/04/2022 0900 Local . 02 Comment: The peripheral smear shows mild leukopenia, moderate normocytic normochromic anemia with red cell rouleaux, and mild thrombocytopenia. The bone marrow varies from normocellular to focally hypercellular and shows extensive replacement by mildly atypical plasma cells. Flow cytometric analysis detects a small population of monoclonal plasma cells showing lambda light chain restriction. In the bone marrow biopsy, plasma cells comprise approximately 70-80% of nucleated marrow cells and also show lambda light chain restriction. There does appear to be evidence of end-organ damage attributable to the plasma cell proliferative disorder, consisting of anemia. The findings are consistent with marrow involvement by plasma cell myeloma. (LINN:delaney; 01/03/2022) . . Immunoperoxidase stain for CD138 on A1; in situ hybridization for kappa and lambda light chain on A1. . Special stains: Retic stain on A1; iron stain on A1. . 02 Electronically signed: . Alberto Mathis MD, Pathologist NPI- [id number] . 01 Gross description: . A. The specimen is received in formalin, labeled "Saeed Teaguebi, BM BX". Received is a nova to dark red, firm bone needle core fragment, measuring 2.0 cm in length by up to 0.2 cm in diameter. The specimen is entirely submitted cassette A1, following decalcification in Immunocal . B. The specimen is received in formalin, labeled "Saeed Teaguebi, BM ASP clot". Received is a 3.2 x 3.5 x 1.2 cm aggregate of dark red, clotted hemorrhagic material. The specimen is entirely submitted in cassette B1 to B3. (J; 12/27/2021) J/J 01/03/2022 1041 Local . 02 Microscopic: . Laboratory Data: The WBC count is 3.3 K/CMM, and the automated WBC differential reveals 69% neutrophils, 27% lymphs, and 3% monos. The RBC count is 2.89 M/CMM, hemoglobin 8.6 G/DL, hematocrit 25.3%, MCV 88 FL, MCH 30 PG, MCHC 34 G/DL, and the RDW is 18.5%. The platelet count is 100 K/CMM. The admission hemoglobin was 7.0 G/DL. The patient received 1 unit of packed red blood cells on 12/26/21. The total protein is 14.3 G/DL, albumin 2.0 G/DL, globulin 12.3 G/DL, creatinine 1.6 MG/DL, and sodium 129 MMOL/L. Previous laboratory evaluation revealed a large IgG monoclonal protein with lambda-light chain specificity. . Peripheral Smear: The peripheral smear is reviewed. The WBC count is mildly decreased. The WBC differential reveals a predominance of segmented neutrophils, with a smaller population of lymphocytes and a few monocytes noted. Neutrophils do not show dysplastic changes. There is no significant neutrophilic left shift. There is no leukoerythroblastic reaction. The lymphocyte population consists predominantly of small mature lymphocytes. There are no circulating plasma cells noted. Red blood cells predominantly appear normochromic and normocytic. There is red blood cell rouleaux. Red blood cells show no significant poikilocytosis. Platelets are mildly decreased and appear normal in morphology. . Aspirate Smears and biopsy touch imprints: One Dowell's-stained aspirate smear, and three Dowell's-stained biopsy touch imprints are examined. The aspirate smear is devoid of marrow particles and essentially reveals peripheral blood. Rare immature granulocytic precursors, erythroid precursors, and mildly atypical plasma cells are identified. The biopsy touch imprints are also bloody and sparsely cellular. There are focal granulocytic precursors and erythroid precursors which show no obvious dysplastic changes. There are a few megakaryocytes present which are of variable ploidy. There are also several mildly atypical plasma cells noted. The plasma cells are slightly enlarged, and possess eccentric nuclei containing small or indistinct nucleoli. . Bone Marrow Biopsy and Clot Section: Sections of the bone marrow biopsy reveal an elongate segment of bone marrow. The marrow ranges from approximately 20% up to 70% cellular. The marrow shows extensive interstitial infiltration by plasma cells. The plasma cells are mildly atypical, and possess rounded nuclei containing small or inconspicuous nucleoli. Some of the plasma cells show intranuclear cytoplasmic inclusions. The more cellular area of the biopsy actually reveals a predominance of hematopoietic precursors and a smaller proportion of plasma cells. In this area, there is an admixture of erythroid and granulocytic precursors which are present in varying stages of maturation, in addition to several megakaryocytes which are of variable ploidy. Sections of the clot sections reveal blood clot containing a few segments of bone and are essentially devoid of marrow particles. . To confirm flow cytometric findings and characterize the target cells in a tissue architectural context, an immunoperoxidase stain for CD138 and in situ hybridization for kappa and lambda light chain are obtained on A1 and yield the following results: . CD138: Plasma cells positive; plasma cells comprise approximately 70-80% of nucleated marrow cells. . [place] and lambda ÁNGELA: Plasma cells show lambda light chain restriction. . A properly controlled reticulin stain obtained on the biopsy shows mildly increased reticulin fibers. A properly controlled iron stain obtained on the biopsy shows scattered reticuloendothelial iron stores. The iron stain of the clot section is insufficient for evaluation of iron stores due to the lack of marrow particles. . . Special Studies: Bone marrow submitted for flow cytometric analysis has a viability of 99.6%. Granulocytes comprise 62.3% of total cells and show dim CD10 expression. Mature cells are relatively increased, raising the possibility of a hemodiluted aspirate specimen. CD45 dim, CD34 positive cells comprise 0.4% of total cells. Monocytes comprise 2.0% of total cells. Lymphocytes comprise 29.4% of total cells. T-cells comprise 62% of lymphoid cells and show a CD4/CD8 ratio of 0.9. NK-cells comprise 30% of lymphoid cells. Mature B-cells comprise 5% of lymphoid cells and are polyclonal with a kappa:lambda ratio of 2.9. There is a monoclonal population of plasma cells comprising 1.3% of total cells which are CD38 and CD138 positive and show cytoplasmic lambda light chain restriction. These plasma cells are CD19, CD20, CD45, CD56, and CD117 negative. See flow cytometric report [id number]. . (JPM:delaney; 01/03/2022) . 02 Pathologist provided ICD-10: D72.819, D69.6, D64.9, D75.9 . 02 CPT . 701586, [id number], [id number], [id number], [id number], [id number], 180806, [id number], [id number], [id number] Specimen Comment: A courtesy copy of this report has been sent to [phone], [phone] Specimen Comment: [id number], Specimen Comment: Report sent to , DR MACDONALD / MESSI Performed at: 01 [facility] [address], [place] [id number] MD Claudio Johnson MD Phone: [phone] Performed at: 02 [facility] [address] [place], [place] [id number] MD Alberto Mathis MD Phone: [phone]
== END 2021-12-28 13:05 | disposition home or self-care (01) | DRG 177 ==
LOC: ER 08:45 → 5 NORTH 10:04
PROVIDERS: ADMIT Family Medicine; ATTEND Family Medicine
PROC: 30233N1 Transfusion of Nonautologous Red Blood Cells into Peripheral Vein, Percutaneous Approach (ICD-10-PCS; principal; 2021-12-26)
PROC: 07DR3ZX Extraction of Iliac Bone Marrow, Percutaneous Approach, Diagnostic (ICD-10-PCS; 2021-12-27)
DX: J15.6 Pneumonia due to other Gram-negative bacteria (principal); N17.0 Acute kidney failure with tubular necrosis; E43 Unspecified severe protein-calorie malnutrition; E87.1 Hypo-osmolality and hyponatremia; C90.00 Multiple myeloma not having achieved remission; D61.818 Other pancytopenia; E83.51 Hypocalcemia; Z68.20 Body mass index [BMI] 20.0-20.9, adult
CPT/HCPCS: 36415; 36430; 38222; 71045; 77012; 80048; 80053; 81001; 83735; 83880; 84100; 84484; 85025; 86850; 86900; 86901; 86920; 87040; 87428; 88184; 88185; 88237; 88374; 93005; 96360; 99152; J0456; J0610; J0696; J2250; J3010; J3490; J7060; J7120; P9016; U0003; 99285-25; G0378